=== PATIENT | female | born 1945 | race Caucasian/White ===

== ENCOUNTER 2017-09-07 08:08 | Outpatient (CLI) | payer MEDICARE, OTHER ==
--- NOTE | 2017-09-07 10:24 | DEXA Report ---
Procedure Date: 09/07/2017 Accession Number: [id number] / [id number] Procedure: DEX - Dexa Spine and/or Hip CPT Code: FULL RESULT: CLINICAL INDICATION: POST MENOPAUSAL TECHNIQUE: Dual energy x-ray absorptiometry (DXA) was performed on a Simfinit System. Regions measured are the AP Spine, femoral neck, and if needed forearm. COMPARISON: None. In accordance with the International Society for Clinical Densitometry (ISCD) guidelines, data from previous exams may be reanalyzed using current recommendations and techniques. This is done to allow a more accurate basis for comparison with the current study. FINDINGS: The data for the lumbar spine is as follows: BMD (g/cm/cm) T-SCORE Z-SCORE REGION L1 0.798 -2.8 -1.8 L2 0.954 -2.1 -1.1 L3 1.107 -0.8 0.2 L4 1.030 -1.4 -0.4 TOTAL 0.976 -1.7 -0.7 NOTE: All evaluable vertebrae are used for classification The data for the hip is as follows: BMD (g/cm/cm) T-SCORE Z-SCORE REGION Neck 0.861 -1.3 0.1 TOTAL 0.913 -0.8 0.4 NOTE: The femoral neck or total proximal femur, whichever is lowest, is used for classification. IMPRESSION: THE WHO CLASSIFICATION BASED ON THE INTERNATIONAL REFERENCE STANDARD IS OSTEOPENIA. THE FRACTURE RISK IS INCREASED. RECOMMENDATION: Patients with diagnosis of osteoporosis or osteopenia should have regular bone mineral density assessment. For those eligible for Medicare, routine testing is allowed once every 2 years. Testing frequency can be increased for patients who have rapidly progressing disease or for those who are receiving medical therapy to restore bone mass. COMMENT: World Health Organization (WHO) definitions for osteoporosis and osteopenia: NORMAL BMD: T-score at -1.0 or higher, fracture risk is low OSTEOPENIA BMD: T-score between -1.0 and -2.5, fracture risk is increased. OSTEOPOROSIS BMD: T-score at -2.5 or lower, fracture risk is high. National Osteoporosis Foundation recommends: 1. Obtain adequate dietary calcium (at least 1200 mg per day) and vitamin D (400-800 international units per day). 2. Participate, as appropriate, in regular weightbearing and muscle-strengthening exercise. 3. Avoid tobacco use and reduce alcohol and caffeine intake. 4. For more detailed information see the website at www.NOF.org.
== END 2017-09-07 08:09 | disposition home or self-care (01) ==
LOC: DI 08:08
PROVIDERS: ATTEND Nurse Practitioner Family
DX: M85.89 Other specified disorders of bone density and structure, multiple sites (principal)
CPT/HCPCS: 77080

== ENCOUNTER 2017-09-09 09:11 | Outpatient (CLI) | payer MEDICARE, OTHER ==
--- NOTE | 2017-09-12 18:09 | Mammography Report ---
Procedure Date: 09/09/2017 Accession Number: [id number] / [id number] Procedure: MGS - Screening Mammo Dig Bilat CPT Code: FULL RESULT: EXAM: Screening Mammo Dig Bilat DATE: 09/09/2017 9:34 AM CLINICAL HISTORY: History of reduction mammoplasty TECHNIQUE: Bilateral CC and MLO views were obtained. COMPARISON: 05/21/2014, 05/02/2012, 05/01/2011, and 08/26/2009 FINDINGS: There is extensive fatty replacement of the breast tissue. No suspicious clustered microcalcifications or regions of architectural distortion are identified. Stable partially calcified right subareolar nodule. New 5 mm nodule left breast lower outer quadrant posterior third. Suggest spot compression views and possible ultrasound. IMPRESSION: Benign findings right breast. Needs additional evaluation left breast. RECOMMENDATION: Additional views and possible ultrasound left breast.. BIRADS CATEGORY 0: Incomplete examination STANDARD QUALIFYING STATEMENTS: 1. This examination was reviewed with the aid of Computer-Aided Detection (CAD). 2. A negative or benign imaging report should not delay biopsy if clinically suspicious findings are present. Consider surgical consultation if warrented. More than 5% of cancers are not identified by imaging. 3. Dense breasts may obscure an underlying neoplasm.
== END 2017-09-09 09:12 | disposition home or self-care (01) ==
LOC: DI.S 09:11
PROVIDERS: ATTEND Nurse Practitioner Family
DX: Z12.31 Encounter for screening mammogram for malignant neoplasm of breast (principal); N63.23 Unspecified lump in the left breast, lower outer quadrant
CPT/HCPCS: 77067

== ENCOUNTER 2017-10-13 09:06 | Outpatient (CLI) | payer MEDICARE, OTHER ==
--- NOTE | 2017-10-13 11:00 | Ultrasound Report ---
Procedure Date: 10/13/2017 Accession Number: [id number] / [id number] Procedure: US - Breast Unilateral Limited CPT Code: FULL RESULT: EXAM: Breast Unilateral Limited DATE: 10/13/2017 10:27 AM CLINICAL HISTORY: ABNORMAL MAMMO LT BREAST TECHNIQUE: Grayscale ultrasound limited color Doppler images of the left breast were obtained. COMPARISON: Reference is made to the diagnostic mammogram performed the same day. FINDINGS: Corresponding to the subcutaneous millimeter density seen on mammogram is a left breast 4:00 7 cm from the nipple hypoechoic lesion with decreased through transmission with a round shape in parallel orientation that is well-circumscribed, has a perceptibly thick wall and does not distort the surrounding architecture. Most suggestive of a complex cyst. IMPRESSION: Likely complex cyst, probably benign. BI-RADS 3 At the patient's request, we will proceed with biopsy is still of short-term follow-up.
--- NOTE | 2017-10-13 13:51 | Mammography Report ---
Procedure Date: 10/13/2017 Accession Number: [id number] / [id number] Procedure: [facility] - Diag Special Views Dig LT CPT Code: FULL RESULT: EXAM: Diag Special Views Dig LT DATE: 10/13/2017 9:47 AM CLINICAL HISTORY: 72-year-old female recalled for findings of a new mass in the left breast. TECHNIQUE: Left mL, CC and MLO views were obtained. COMPARISON: 09/09/2017, 05/21/2014, 05/02/2012. FINDINGS: The breasts demonstrate diffuse fatty replacement bilaterally. The previously identified 3 mm mass persists. There are no associated calcifications. There is no architectural distortion. IMPRESSION: Probable benign findings RECOMMENDATION: Based on the patient's preferences, we will proceed to ultrasound guided biopsy. Mammographic surveillance every 6 months for a duration of 2 years represents the recommended default conservative management. BIRADS CATEGORY 3: Probable benign findings STANDARD QUALIFYING STATEMENTS: 1. This examination was reviewed with the aid of Computer-Aided Detection (CAD). 2. A negative or benign imaging report should not delay biopsy if clinically suspicious findings are present. Consider surgical consultation if warrented. More than 5% of cancers are not identified by imaging. 3. Dense breasts may obscure an underlying neoplasm.
== END 2017-10-13 09:07 | disposition home or self-care (01) ==
LOC: DI 09:06
PROVIDERS: ATTEND Nurse Practitioner Family
DX: N63.23 Unspecified lump in the left breast, lower outer quadrant (principal)
CPT/HCPCS: 76642

== ENCOUNTER 2017-10-14 10:28 | Outpatient (CLI) | payer MEDICARE, OTHER ==
[2017-10-14] MEDS ORDERED: BUFFERED LIDOCAINE 10 ML SYRINGE IU ONE (12:58)
--- NOTE | 2017-10-14 13:14 | Ultrasound Report ---
Procedure Date: 10/14/2017 Accession Number: [id number] / [id number] Procedure: US - Biopsy Breast Core CPT Code: FULL RESULT: EXAM: Biopsy Breast Core DATE: 10/14/2017 1:03 PM CLINICAL HISTORY: LT BREAST CORE BIOPSY COMPARISON: Ultrasound 10/13/2017. FINDINGS/TECHNIQUE: Written informed consent was obtained. The patient was brought to the procedural area and placed in the supine position. Following preliminary ultrasound images which demonstrated a safe needle pathway, the area was sterilely prepped and draped in the usual fashion. Then following local anesthesia with hypodermic lidocaine, a skin erik was made with a scalpel. Under direct ultrasound guidance a biopsy marker was placed next to the subcentimeter cystic lesion through a guiding trocar. Through the same trocar a matched 14-gauge biopsy gun was advanced and a total of 3 cores were taken under direct ultrasound visualization. The needle and guiding trocar were removed and hemostasis was maintained with manual pressure for 3 minutes. A sterile dressing was applied. The patient appeared to tolerate the procedure well. Specimens were submitted to pathology in formalin, 3 cores obtained in 3 passes. The patient was transferred to the mammography department for breast marker localization and confirmation. IMPRESSION: Left breast ultrasound-guided core biopsy.
--- NOTE | 2017-10-14 14:44 | Mammography Report ---
Procedure Date: 10/14/2017 Accession Number: [id number] / [id number] Procedure: [facility] - Diagnostic Dig LT CPT Code: FULL RESULT: EXAM: Diagnostic Dig LT DATE: 10/14/2017 12:36 PM CLINICAL HISTORY: Marker placement follow-up status post ultrasound-guided biopsy performed the same day. TECHNIQUE: Left breast CC and ML views. COMPARISON: 09/09/2017, 10/13/2017, 10/14/2017 breast ultrasound. FINDINGS: The breasts demonstrate diffuse fatty replacement bilaterally. The biopsy marker is identified as well as postbiopsy changes. Marker is in location of the previously targeted mass. IMPRESSION: Probable benign findings RECOMMENDATION: Recommend diagnostic left mammogram in 6 months. BIRADS CATEGORY 3: Probable benign findings STANDARD QUALIFYING STATEMENTS: 1. This examination was reviewed with the aid of Computer-Aided Detection (CAD). 2. A negative or benign imaging report should not delay biopsy if clinically suspicious findings are present. Consider surgical consultation if warrented. More than 5% of cancers are not identified by imaging. 3. Dense breasts may obscure an underlying neoplasm.
== END 2017-10-14 10:29 | disposition home or self-care (01) ==
LOC: DI 10:28
PROVIDERS: ATTEND Nurse Practitioner Family
DX: N63.23 Unspecified lump in the left breast, lower outer quadrant (principal)
CPT/HCPCS: 19083

== ENCOUNTER 2017-12-21 09:02 | Outpatient (CLI) | payer MEDICARE, OTHER ==
[2017-12-21 17:27] LABS: HGB - HEMOGLOBIN 15.3 g/dL (12.0-16.0); MEAN CORPUSCULAR HEMOGLOBIN 31.4 pg (27.0-31.0); MEAN CORPUSCULAR HGB CONC 33.3 g/dL (32.0-36.0); MEAN CORPUSCULAR VOLUME 94.4 fL (81.0-99.0); MEAN PLATELET VOLUME 8.1 fL (7.9-10.8); RED BLOOD COUNT 4.88 10^6/uL (4.20-5.40); RED CELL DISTRIBUTION WIDTH 13.6 % (12.0-15.0); WHITE BLOOD COUNT 5.4 x10^3/uL (4.8-10.8)
[2017-12-21 17:46] LABS: BUN - BLOOD UREA NITROGEN 16 mg/dL (6-20); CALCIUM 9.4 mg/dL (8.5-10.3); CARBON DIOXIDE - CO2 28 mmol/L (21-32); CHLORIDE 106 mmol/L (101-111); CHOL/HDL RATIO 3.4 (<4.4); CHOLESTEROL 189 mg/dL; CREATININE 0.9 mg/dL (0.4-1.0); GFR - MDRD 61 (>89); GLUCOSE 97 mg/dL (70-100); HDL CHOLESTEROL 56 mg/dL; LDL CHOLESTEROL,CALCULATED 120 mg/dL; LDL/HDL RATIO 2.1 (<4.4); SODIUM 140 mmol/L (135-145); VLDL CHOLESTEROL 13 mg/dL
== END 2017-12-21 09:03 | disposition home or self-care (01) ==
LOC: LAB.F 09:02
PROVIDERS: ATTEND Internal Medicine
DX: I10 Essential (primary) hypertension (principal); E03.9 Hypothyroidism, unspecified
CPT/HCPCS: 36415; 80048; 80061; 83721; 84443; 85027

== ENCOUNTER 2018-01-23 09:42 | Outpatient (CLI) | payer MEDICARE, OTHER ==
--- NOTE | 2018-01-23 10:46 | XRAY Report ---
Reason: PAIN OVER CUBOID 5TH MT L FT Procedure Date: 01/23/2018 Accession Number: [id number] / [id number] Procedure: XR - Foot 3 View LT CPT Code: FULL RESULT: EXAM: LEFT FOOT RADIOGRAPHY EXAM DATE: 01/23/2018 09:51 AM. CLINICAL HISTORY: Pain over cuboid fifth metatarsal left foot. COMPARISON: None. TECHNIQUE: 3 views. FINDINGS: Bones: Inferior calcaneal enthesopathy. Along the medial base of the fifth metatarsal is a well-circumscribed 6 mm cystic lesion with sclerotic border. This may represent a posttraumatic degenerative change versus benign-appearing bone lesion. No fractures or bone lesions. Joints: Normal. No subluxations. Soft Tissues: Normal. No soft tissue swelling. IMPRESSION: Posttraumatic finding versus benign-appearing bone lesion at the base of the fifth metatarsal. RADIA
== END 2018-01-23 09:43 | disposition home or self-care (01) ==
LOC: DI 09:42
PROVIDERS: ATTEND Podiatrist
DX: M79.672 Pain in left foot (principal); M85.672 Other cyst of bone, left ankle and foot

== ENCOUNTER 2018-03-30 15:04 | Outpatient (CLI) | payer MEDICARE, OTHER ==
--- NOTE | 2018-03-30 16:09 | XRAY Report ---
Reason: LOW BACK PAIN Procedure Date: 03/30/2018 Accession Number: [id number] / [id number] Procedure: XR - Lumbar Spine 2 View CPT Code: FULL RESULT: EXAM: LUMBOSACRAL SPINE RADIOGRAPHY EXAM DATE: 03/30/2018 03:45 PM. CLINICAL HISTORY: Low back pain. COMPARISONS: None. TECHNIQUE: 2 views. FINDINGS: Alignment: Levoconvex lumbar scoliosis centered about L3. Approximately about 1.2 cm of anterolisthesis of L5 on S1. Bones: Five [id number]-[id number] lumbar vertebral bodies are present. No fractures or bone lesions. Disks: Mild multilevel disk desiccation with endplate changes. Facets: Multilevel facet arthropathy which is most pronounced L5 where there is a pars defect. Sacroiliac Joints: Unremarkable. Soft Tissues: Normal. The visualized bowel gas pattern is normal. IMPRESSION: L5 pars defect with anterolisthesis of L5 on S1 as described. RADIA
== END 2018-03-30 15:05 | disposition home or self-care (01) ==
LOC: DI 15:04
PROVIDERS: ATTEND Internal Medicine
DX: M43.06 Spondylolysis, lumbar region (principal); M47.9 Spondylosis, unspecified; M51.36 Other intervertebral disc degeneration, lumbar region
CPT/HCPCS: 72100

== ENCOUNTER 2018-12-13 08:40 | Outpatient (CLI) | payer MEDICARE, OTHER ==
[2018-12-13 17:16] LABS: HGB - HEMOGLOBIN 15.1 g/dL (12.0-16.0); MEAN CORPUSCULAR HEMOGLOBIN 31.7 pg (27.0-31.0); MEAN CORPUSCULAR HGB CONC 32.6 g/dL (32.0-36.0); MEAN CORPUSCULAR VOLUME 97.3 fL (81.0-99.0); MEAN PLATELET VOLUME 9.9 fL (7.9-10.8); RED BLOOD COUNT 4.76 10^6/uL (4.20-5.40); RED CELL DISTRIBUTION WIDTH 13.1 % (12.0-15.0); WHITE BLOOD COUNT 6.8 x10^3/uL (4.8-10.8)
[2018-12-13 17:46] LABS: ALBUMIN/GLOBULIN RATIO 1.3 (1.0-2.2); BILIRUBIN,TOTAL 0.9 mg/dL (0.2-1.0); CALCIUM 9.3 mg/dL (8.5-10.3)
== END 2018-12-13 08:41 | disposition home or self-care (01) ==
LOC: LAB.S 08:40
PROVIDERS: ATTEND Internal Medicine
DX: E03.9 Hypothyroidism, unspecified (principal)
CPT/HCPCS: 36415; 80053; 84443; 85027

== ENCOUNTER 2019-05-01 08:48 | Outpatient (CLI) | payer MEDICARE, OTHER | END 2019-05-01 08:49 | disposition home or self-care (01) | LOC: LAB.S 08:48 | PROVIDERS: ATTEND Internal Medicine | DX: E03.9 Hypothyroidism, unspecified (principal) | CPT/HCPCS: 36415; 84443 ==

== ENCOUNTER 2019-11-13 07:01 | Outpatient (CLI) | payer MEDICARE, OTHER ==
--- NOTE | 2019-11-13 15:31 | Ultrasound Report ---
PROCEDURE: Pelvic w/Transvaginal INDICATIONS: POSTMENOPAUSAL BLEEDING TECHNIQUE: Real-time scanning was performed of the pelvic organs, with image documentation. Additional endovagi nal scanning was necessary due to incomplete visualization of the adnexal and endometrial structures by transabdominal scanning. COMPARISON: None. FINDINGS: Transabdominal scanning: Limited scanning through the kidneys shows no hydronephrosis. No pathologi c free abdominal or pelvic fluid. Endovaginal scanning: Uterus: Uterus is normal in size at 6.0 x 2.9 x 3.6 cm. The endometrium measures 13 mm in combined thickness. There is a right anterior subserosal focus of heterogeneous echogenicity measuring 16 x 12 x 12 mm. There is a calcification are present. Ovaries: Ovaries are not visualized. Adnexal regions are unremarkable. IMPRESSION: 1. Prominent endometrium in postmenopausal patient with bleeding. Further EXECUTIVE ACCOUNT MANAGER workup is recommended. Although no focal mass is identified, underlying neoplasm cannot be definitively excluded. 2. Small focus of heterogeneous echogenicity within the uterus suspicious for fibroid. Reviewed by: Tsering Forte MD on 11/13/2019 3:30 PM PDT Approved by: Tsering Forte MD on 11/13/2019 3:30 PM PDT Station ID: [id number]
== END 2019-11-13 07:02 | disposition home or self-care (01) ==
LOC: DI 07:01
PROVIDERS: ATTEND Obstetrics & Gynecology
DX: R93.89 Abnormal findings on diagnostic imaging of other specified body structures (principal)
CPT/HCPCS: 76830; 76856

== ENCOUNTER 2019-12-31 12:59 | Outpatient (CLI) | payer MEDICARE, OTHER ==
[2019-12-31 13:20] LABS: BASOPHILS # (AUTO) 0.1 10^3/uL (0.0-0.1); BASOPHILS % (AUTO) 0.7 %; EOSINOPHILS # (AUTO) 0.2 10^3/uL (0.0-0.7); EOSINOPHILS % (AUTO) 2.3 %; HGB - HEMOGLOBIN 14.6 g/dL (12.0-16.0); LYMPHOCYTES % (AUTO) 27.3 %; MEAN CORPUSCULAR HEMOGLOBIN 31.6 pg (27.0-31.0); MEAN CORPUSCULAR HGB CONC 32.8 g/dL (32.0-36.0); MEAN CORPUSCULAR VOLUME 96.3 fL (81.0-99.0); MONOCYTES # (AUTO) 0.8 10^3/uL (0.0-1.0); NEUTROPHILS # (AUTO) 4.3 10^3/uL (1.5-6.6); NEUTROPHILS % (AUTO) 58.3 %; PLT - PLATELET COUNT 187 10^3/uL (130-450); RED BLOOD COUNT 4.62 10^6/uL (4.20-5.40); RED CELL DISTRIBUTION WIDTH 12.8 % (12.0-15.0); WHITE BLOOD COUNT 7.4 x10^3/uL (4.8-10.8)
[2019-12-31 13:30] LABS: ALBUMIN 3.9 g/dL (3.2-5.5); ALBUMIN/GLOBULIN RATIO 1.3 (1.0-2.2); BILIRUBIN,TOTAL 0.7 mg/dL (0.2-1.0); CALCIUM 9.2 mg/dL (8.5-10.3); TOTAL PROTEIN 6.8 g/dL (6.7-8.2)
== END 2019-12-31 13:00 | disposition home or self-care (01) ==
LOC: LAB 12:59
PROVIDERS: ATTEND Obstetrics & Gynecology
DX: Z01.810 Encounter for preprocedural cardiovascular examination (principal); N95.0 Postmenopausal bleeding; R93.89 Abnormal findings on diagnostic imaging of other specified body structures
CPT/HCPCS: 36415; 80053; 85025; 93005; U0004

== ENCOUNTER 2020-01-03 06:15 | Day surgery (SDC) | payer MEDICARE, OTHER ==
[2020-01-03] MEDS ORDERED: CEFAZOLIN SODIUM IN 0.9 % NACL 2 GM/100 ML BAG IV ONE (06:28)
[2020-01-03] MEDS ORDERED: ACETAMINOPHEN 1,000 MG/100 ML 100 ML IV ONE ×2 (06:29→07:42)
[2020-01-03] MEDS ORDERED: CELECOXIB 100 MG CAPSULE PO ONE (06:29)
[2020-01-03] MEDS ORDERED: GABAPENTIN 400 MG CAPSULE ONE (06:30)
[2020-01-03] MEDS ORDERED: LACTATED RINGERS 1,000 ML IV ONE ×2 (06:34→08:39)
[2020-01-03] MEDS ORDERED: SILVER NITRATE APPLICATOR TOP ONE (07:20)
[2020-01-03] MEDS ORDERED: BUPIVACAINE 0.25%-EPI 1:200000 PF 30 ML VIAL ONE (07:20)
--- NOTE | 2020-01-03 07:26 | ANESTHESIA ---
Pre-Anesthesia VS, & Labs - Diagnosis post-menopausal bleeding, thickened endometrium - Procedure myosure hysteroscopy, D&C Vital Signs: Temp Pulse Resp BP Pulse Ox 37.1 C 67 18 150/77 H 96 01/03/20 06:36 01/03/20 06:36 01/03/20 06:36 01/03/20 06:36 01/03/20 06:36 Height: 5 ft 3 in Weight (kg): 101 kg Body Mass Index: 39.4 BMI Classification: Obese - NPO >8 hours - Is Patient ?: No - Lab Results Current Lab Results: Laboratory Tests 01/03/20 06:42: POC Whole Bld Glucose 100 Lab results reviewed: Yes Home Medications and Allergies Home Medications: Ambulatory Orders Cholecalciferol (Vitamin D3) [Vitamin D3] 5,000 unit PO DAILY 12/25/19 Levothyroxine Sodium 50 mcg PO DAILY 12/25/19 Metoprolol Succinate [Toprol Xl] 50 mg PO DAILY 12/25/19 Pentosan Polysulfate Sodium [Elmiron] 100 mg PO TID 12/25/19 Tolterodine Tartrate [Detrol LA] 4 mg PO DAILY 12/25/19 Venlafaxine HCl [Venlafaxine HCl ER] 75 mg PO DAILY 12/25/19 Cholecalciferol (Vitamin D3) [Vitamin D3] 5,000 unit PO DAILY 12/25/19 Levothyroxine Sodium 50 mcg PO DAILY 12/25/19 Metoprolol Succinate [Toprol Xl] 50 mg PO DAILY 12/25/19 Pentosan Polysulfate Sodium [Elmiron] 100 mg PO TID 12/25/19 Tolterodine Tartrate [Detrol LA] 4 mg PO DAILY 12/25/19 Venlafaxine HCl [Venlafaxine HCl ER] 75 mg PO DAILY 12/25/19 Allergies/Adverse Reactions: Allergies Allergy/AdvReac Type Severity Reaction Status Date / Time Sulfa (Sulfonamide Allergy Rash Verified 12/25/19 10:47 Antibiotics) Anes History & Medical History - Anesthetic History Anesthesia Complications: reports: No previous complications Family history of Anesthesia Complications: Denies Family history of Malignant Hyperthermia: Denies - Medical History Cardiovascular: reports: Hypertension Pulmonary: reports: None Gastrointestinal: reports: GERD, Colon polyps Urinary: reports: Frequency, Other Musculoskeletal: reports: None Endocrine/Autoimmune: reports: HyPOthyroidism Skin: reports: None - Surgical History General: Appendectomy, Colonoscopy Eyes Ears Nose Throat (EENT): Cataracts, Tonsil/Adenoidectomy Gynecologic: Breast reduction Exam General: Alert, Oriented x3, Cooperative, No acute distress Dental: WNL Mouth Openin Fingerbreadth Neck Mobility: Normal Mallampati classification: II Respiratory: Lungs clear Cardiovascular: Regular rate, Normal S1, Normal S2, No murmurs Plan Anesthesia Type: MAC Consent for Procedure(s) Verified and Reviewed: Yes Code Status: Attempt Resuscitation ASA classification: 3-Severe systemic disease Is this case an emergency?: No
[2020-01-03] MEDS ORDERED: ONDANSETRON 4 MG/2 ML VIAL IVP PRN ×2 (07:27→08:44)
[2020-01-03] MEDS ORDERED: NALOXONE 0.4 MG/ML VIAL IVP PRN (07:27)
[2020-01-03] MEDS ORDERED: MORPHINE 2 MG/ML CARPUJECT IVP PRN (07:27)
[2020-01-03] MEDS ORDERED: ePHEDrine 50 MG/ML VIAL IVP PRN (07:27)
[2020-01-03] MEDS ORDERED: HYDROmorphone 0.5 MG/0.5 ML SYRINGE IVP PRN (07:27)
[2020-01-03] MEDS ORDERED: METOCLOPRAMIDE 10 MG/2 ML VIAL IVP PRN (07:27)
[2020-01-03] MEDS ORDERED: ATROPINE ABBOJECT 1 MG/10 ML SYRINGE IVP PRN (07:27)
[2020-01-03] MEDS ORDERED: fentaNYL 100 MCG/2 ML VIAL IVP PRN (07:27)
[2020-01-03] MEDS ORDERED: ONDANSETRON 4 MG/2 ML VIAL IVP ONE (07:42)
[2020-01-03] MEDS ORDERED: MIDAZOLAM 2 MG/2 ML VIAL IVP ONE (07:42)
[2020-01-03] MEDS ORDERED: fentaNYL 100 MCG/2 ML VIAL IVP ONE (07:42)
[2020-01-03] MEDS ORDERED: PROPOFOL 200 MG/20 ML VIAL IVP ONE (07:42)
[2020-01-03] MEDS ORDERED: LACTATED RINGERS 1,000 ML IV SCH (08:00)
[2020-01-03] MEDS ORDERED: BUPIVACAINE 0.25%-EPI 1:200000 PF 30 ML VIAL SUBQ ONE (08:10)
--- NOTE | 2020-01-03 08:43 | ANESTHESIA POST OP EVALUATION ---
Anesthesia Post Eval - Post Anesthesia Eval Vitals: Last Vital Signs Temp 37.1 C 01/03/20 06:36 Pulse 67 01/03/20 06:36 Resp 18 01/03/20 06:36 BP 150/77 H 01/03/20 06:36 Pulse Ox 96 01/03/20 06:36 CV Function Including HR & BP: positive: Stable Pain Control: positive: Satisfactory Nausea & Vomiting: positive: Negative Mental Status: positive: Baseline Respiratory Status: Airway Patent Hydration Status: Satisfactory Anesthesia Complications: positive: None
[2020-01-03] MEDS ORDERED: oxyCODONE 5 MG TABLET PO PRN (08:44)
[2020-01-03] MEDS ORDERED: LORazepam 2 MG/ML VIAL IVP PRN (08:44)
--- NOTE | 2020-01-03 08:50 | OPERATIVE REPORT ---
Operative Report - General Procedure Date: 01/03/20 Planned Procedure: Hysterscopy Pre-Op Diagnosis: Postmenopausel bleeding thickened endometrium Procedure Performed: Hysterscopy with myosure Post Op Diagnosis: endometrial polyps - Procedure Note Primary Surgeon: Walt Zimmer MD Anesthesia Provider: Emanuel Small CRNA Anesthesia Technique: Local, Moderate sedation Pathology: endometrila polyps IV Fluids (mL): 800 Estimated Blood Loss (mL): 5 Urine Output (mL): 100 Indications: Post menopausel bleeding Findings: two distinct endometrial polyps Complications: none
[2020-01-03 10:02] VITALS: BP 110/79
--- NOTE | 2020-01-03 15:15 | OPERATIVE REPORT ---
DATE OF SERVICE: 01/03/2020 Physician: Walt Zimmer MD PREOPERATIVE DIAGNOSIS: Postmenopausal bleeding. POSTOPERATIVE DIAGNOSES: Postmenopausal bleeding with endometrial polyps. PROCEDURE PERFORMED: Hysteroscopy with resection of endometrial polyps with MyoSure. SURGEON: Walt Zimmer MD ANESTHESIA PROVIDER: Iva Guerrero CRNA. ANESTHETIC: Local with MAC. IV FLUIDS: 800 mL. ESTIMATED BLOOD LOSS: 50 mL. URINE OUTPUT: 100 mL. FLUID DEFICIT: 200 mL. FINDINGS: Upon entering the endometrial cavity, there was evidence of what appeared to be a cervical polyp. This was not able to be removed. The uterus sounded to 8 cm. There were 2 distinct endomet rial polyps noted, which attached both on the right posterior side as well as the left side. PROCEDURE: Following adequate IV sedation, patient was placed in the dorsal lithotomy position. At this point, she was prepped and draped in the usual fashion. A timeout was performed at which issues were addressed. A speculum was placed in the vagina. The cervix was visualized. There was evidenc e of a polyp, which was protruding from the cervix. This was grasped with forceps and was unable to be removed. At this point, the cervix was dilated up to 8 mm and a video MyoSure scope was placed. The endometrial cavity was inspected. There were polyps which obscured the view of the endometrial c avity. At this point, the MyoSure heavy was placed and the endometrial polyps were resected all the way down to the myometrium. The endometrial cavity appeared to be free of any polyps at this point. At this point, the endometrial cavity was inspected in its entirety. There was no further polyps se en. The hysteroscope was removed. The cervix was released from the single-tooth tenaculum. The pat ient tolerated the procedure well and was taken to recovery in stable condition. Sponge and needle c ounts were correct. TD: 01/03/2020 08:58
== END 2020-01-03 06:16 | disposition home or self-care (01) ==
LOC: SDS 06:15
PROVIDERS: ATTEND Obstetrics & Gynecology
PROC: 0UB98ZZ Excision of Uterus, Via Natural or Artificial Opening Endoscopic (ICD-10-PCS; principal; 2020-01-03 07:30)
DX: R93.89 Abnormal findings on diagnostic imaging of other specified body structures (principal); N95.0 Postmenopausal bleeding; N84.0 Polyp of corpus uteri; N84.1 Polyp of cervix uteri; E66.9 Obesity, unspecified; Z68.39 Body mass index [BMI] 39.0-39.9, adult; I10 Essential (primary) hypertension; E03.9 Hypothyroidism, unspecified
CPT/HCPCS: 58558; A9270; J0131; J0690; J7120

== ENCOUNTER 2020-04-08 11:04 | Outpatient (CLI) | payer MEDICARE, OTHER ==
[2020-04-08 15:38] LABS: BASOPHILS # (AUTO) 0.1 10^3/uL (0.0-0.1); BASOPHILS % (AUTO) 0.7 %; EOSINOPHILS # (AUTO) 0.2 10^3/uL (0.0-0.7); EOSINOPHILS % (AUTO) 2.8 %; HGB - HEMOGLOBIN 14.7 g/dL (12.0-16.0); LYMPHOCYTES # (AUTO) 1.6 10^3/uL (1.5-3.5); MEAN CORPUSCULAR HEMOGLOBIN 30.2 pg (27.0-31.0); MEAN CORPUSCULAR HGB CONC 31.3 g/dL (32.0-36.0); MEAN CORPUSCULAR VOLUME 96.7 fL (81.0-99.0); MEAN PLATELET VOLUME 9.4 fL (7.9-10.8); MONOCYTES # (AUTO) 0.8 10^3/uL (0.0-1.0); MONOCYTES % (AUTO) 11.2 %; NEUTROPHILS # (AUTO) 4.1 10^3/uL (1.5-6.6); PLT - PLATELET COUNT 213 10^3/uL (130-450); RED BLOOD COUNT 4.86 10^6/uL (4.20-5.40); RED CELL DISTRIBUTION WIDTH 13.1 % (12.0-15.0); WHITE BLOOD COUNT 6.7 x10^3/uL (4.8-10.8)
[2020-04-08 15:54] LABS: ALBUMIN 4.2 g/dL (3.2-5.5); ALBUMIN/GLOBULIN RATIO 1.5 (1.0-2.2); ALKALINE PHOSPHATASE 47 IU/L (42-121); ALT ALANINE AMINOTRANSFERASE 23 IU/L (10-60); AST ASPARTATE AMINOTRANSFERASE 21 IU/L (10-42); BILIRUBIN,TOTAL 0.6 mg/dL (0.2-1.0); BUN - BLOOD UREA NITROGEN 13 mg/dL (6-20); CALCIUM 9.3 mg/dL (8.5-10.3); CARBON DIOXIDE - CO2 28 mmol/L (21-32); CHLORIDE 104 mmol/L (101-111); CHOL/HDL RATIO 3.5 (<4.4); CHOLESTEROL 187 mg/dL; CREATININE 0.9 mg/dL (0.4-1.0); GLUCOSE 111 mg/dL (70-100); HDL CHOLESTEROL 54 mg/dL; LDL CHOLESTEROL,CALCULATED 106 mg/dL; SODIUM 138 mmol/L (135-145); VLDL CHOLESTEROL 27 mg/dL
== END 2020-04-08 11:05 | disposition home or self-care (01) ==
LOC: LAB.S 11:04
PROVIDERS: ATTEND Internal Medicine
DX: I10 Essential (primary) hypertension (principal); E03.9 Hypothyroidism, unspecified
CPT/HCPCS: 36415; 80053; 80061; 83721; 84443; 85025

== ENCOUNTER 2020-09-11 13:20 | Emergency (ER) | payer MEDICARE, OTHER ==
--- NOTE | 2020-09-11 13:49 | ED Physician Documentation ---
PD HPI LOWER EXT INJURY - Stated complaint Stated Complaint: LT KNEE WEAKNESS - Chief complaint Chief Complaint: Ext Problem - History obtained from History obtained from: Patient - Additional information Additional information: She did a lot of walking yesterday. Today she woke up and felt like she could not use her left leg. It was weak and painful to try to walk on it and to bend. She had some tingling in that leg. She has chronic incontinence but did notice today after using the bathroom for urination, she thought completely, she had an episode of incontinence. She has ongoing back pain. Review of Systems Ten Systems: 10 systems reviewed and negative Constitutional: reports: Reviewed and negative Eyes: reports: Reviewed and negative Ears: reports: Reviewed and negative Nose: reports: Reviewed and negative Throat: reports: Reviewed and negative Cardiac: reports: Reviewed and negative PD PAST MEDICAL HISTORY - Past Medical History Cardiovascular: Hypertension Respiratory: None Endocrine/Autoimmune: HyPOthyroidism GI: GERD, Colon polyps : Incontinence, Nocturia, Frequency, Other HEENT: Chronic vision loss, Chronic hearing loss Psych: Anxiety Musculoskeletal: None Derm: None - Past Surgical History General: Appendectomy, Colonoscopy /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: Breast reduction, Other HEENT: Cataracts, Tonsil/Adenoidectomy - Present Medications Home Medications: Ambulatory Orders Medication Instructions Recorded Confirmed Levothyroxine Sodium 50 mcg PO DAILY 12/25/19 07/21/20 Metoprolol Succinate [Toprol Xl] 50 mg PO DAILY 12/25/19 07/21/20 Venlafaxine HCl [Venlafaxine HCl 75 mg PO DAILY PM 12/25/19 07/21/20 ER] Tolterodine Tartrate [Detrol LA] 4 mg PO DAILY PM 04/18/20 07/21/20 Ergocalciferol (Vitamin D2) 50 mcg PO DAILY 07/21/20 07/21/20 [Vitamin D2] predniSONE [Deltasone] 20 mg PO [id number] #21 tab 09/11/20 - Allergies Allergies/Adverse Reactions: Allergies Allergy/AdvReac Type Severity Reaction Status Date / Time Sulfa (Sulfonamide Allergy Rash Verified 09/11/20 13:46 Antibiotics) - Social History Smoking Status: Unknown if ever smoked PD ED PE NORMAL - Vitals Vital signs reviewed: Yes - General General: Alert and oriented X 3, No acute distress - HEENT HEENT: PERRL, EOMI - Neck Neck: Supple, no meningeal sign, No bony TTP - Cardiac Cardiac: RRR, No murmur - Respiratory Respiratory: No respiratory distress, Clear bilaterally - Abdomen Abdomen: Non tender - Back Back: Other (Some tenderness to the lower lumbar spine and left sciatic notch as well as the right sciatic notch.) - Extremities Extremities: No deformity, No tenderness to palpate, Normal ROM s pain - Neuro Neuro: Alert and oriented X 3, Normal speech, Other (Left knee is mildly tender along the medial joint line. There is no obvious effusion. Patellar reflexes are equal. Sensation throughout the lower extremities is equal.) Results - Vitals Vitals: Vital Signs - 24 hr 09/11/20 09/11/20 13:44 18:06 Temperature 36.7 C Heart Rate 64 58 L Respiratory 16 16 Rate Blood Pressure 154/78 H 168/81 H O2 Saturation 97 97 Oxygen O2 Source Room air PD MEDICAL DECISION MAKING - ED course ED course: 75-year-old woman presents with left leg weakness out of proportion to some knee pain she is having. I watched her walk. She does not limp, she seems to be dragging the left leg. There is no associated numbness and no associated weakness in the left arm or face. Stroke is considered, but the isolated nature in association with back pain would be more suggestive of radiculopathy or spinal stenosis which would be asymmetric. She had no incontinence today on top of her usual stress incontinence which is also concerning. MRI Lspine: IMPRESSION: Multiple levels of lumbar spine degenerative change are seen. At L5-S1, there is grade 1 anterolisthesis is again seen, with associated bilateral pars defects. At this level, there is moderate to severe bilateral neuroforaminal narrowing, with associated exiting nerve root compression. L2-L3, there is moderate bilateral neuroforaminal narrowing and moderate to severe central canal narrowing present. Remote appearing L2 anterior wedge deformity, with approximately 50% loss of height anteriorly 75-year-old woman presents with low back pain and left leg weakness. Given her complaints there was a concern for cauda equina. Call was placed to [facility] after completion of MRI, we are waiting for them to call back for consultation and the patient was eager to leave. She had actually had improved without specific therapy during her ED visit and now is walking unassisted. I discussed the risks and benefits of leaving with the patient and family, given that she has improved, has a negligible post void residual by bladder scan, I think it is okay to be discharged. I told him I would call them if the spine surgeon call me back the best number, is [phone]. After discharge I was able [facility] He viewed the images and we discussed the presentation. He did not think urgent transfer or urgent follow-up was necessary. He agreed with the steroid taper. I gave him the patient's phone number and he plans to do a teledoc visit next week to see how she is doing and assess the need for further evaluation. Patient was updated by phone and appreciative after I spoke with the neurosurgeon. Departure - Departure Disposition: 01 Home, Self Care Clinical Impression: Sciatica of left side Condition: Good Record reviewed to determine appropriate education?: Yes Instructions: ED Sciatica Prescriptions: predniSONE [Deltasone] 20 mg PO [id number] #21 tab Comments: The steroid taper should help with the inflammation. You still need to follow- up with a spine surgeon, take the copy of the MRI on CD with you to that appointment. spine clinic: to schedule an appointment with a specialist, call [phone] or . IMPRESSION: Multiple levels of lumbar spine degenerative change are seen. At L5-S1, there is grade 1 anterolisthesis is again seen, with associated bilateral pars defects. At this level, there is moderate to severe bilateral neuroforaminal narrowing, with associated exiting nerve root compression. L2-L3, there is moderate bilateral neuroforaminal narrowing and moderate to severe central canal narrowing present. Remote appearing L2 anterior wedge deformity, with approximately 50% loss of height anteriorly. Discharge Date/Time: 09/11/20 18:06
[2020-09-11] MEDS ORDERED: IBUPROFEN 600 MG TABLET PO STA (14:04)
--- NOTE | 2020-09-11 14:35 | XRAY Report ---
PROCEDURE: Knee 4 View LT INDICATIONS: knee pain TECHNIQUE: 3 views of the left knee(s) were acquired. COMPARISON: None. FINDINGS: Bones: No fractures or dislocations. No suspicious bony lesions. Soft tissues: No joint effusion. No suspicious soft tissue calcifications. IMPRESSION: No visualized acute fracture or dislocation. However, occult injury cannot be excluded. Recommend short interval imaging follow-up in 7-10 days as clinically indicated for additional evalua tion. Reviewed by: Tsering Forte MD on 09/11/2020 2:33 PM PDT Approved by: Tsering Forte MD on 09/11/2020 2:33 PM PDT Station ID: [id number]
--- NOTE | 2020-09-11 16:19 | MRI Report ---
PROCEDURE: Lumbar Spine W/O INDICATIONS: back pain and incontinence TECHNIQUE: Noncontrast sagittal T1 spin echo and T2 fast echo, sagittal STIR, and T2 fast spin echo through the lumbar spine. In cases with scoliosis, additional coronal T2 fast spin echo may be performed. COMPARISON: Correlation is made with prior lumbar plain films, 03/30/2018 FINDINGS: Image quality: Diagnostic, with note made of motion artifact. Alignment and Curvature: There is grade 1 anterolisthesis seen at the L5-S1 level. Bilateral pars de fects are faintly seen. There is minimal retrolisthesis seen at L2-L3 and L3-L4. Bone Marrow: Marrow is of normal overall signal. There is a compression of arteries seen involving L 2, with 50% loss of height anteriorly. No acute features are seen. Spinal Cord: Conus medullaris terminates at the L1 level. Visualized cord demonstrates normal signa l and size. Paraspinous Soft Tissues: No paravertebral masses. 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 T12-L1: Normal in appearance. L1-L2: The disc height is well-preserved. There is loss of disc signal seen. Moderate disc bulge is seen at this level. Mild to moderate facet hypertrophy is seen. There is mild to moderate right- sided and moderate left-sided neuroforaminal narrowing seen. Moderate central canal narrowing is see n. L2-L3: The disc height is well-preserved. There is loss of disc signal seen. At least moderate dis c bulge is seen. There is a central disc protrusion. Moderate to prominent facet hypertrophy is seen. Associated hypertrophy of the ligamentum flavum can be seen. Moderate bilateral neuroforaminal narr owing is seen, left worse than right. Moderate to severe central canal narrowing is seen, as on serie s 701 image 23. L3-L4: Moderate loss of disc height and signal are seen. Moderate disc bulge is seen at this lev el. Moderate facet hypertrophy is seen. Moderate bilateral neural foraminal narrowing is seen, ri ght worse than left. Moderate central canal narrowing is seen. L4-L5: The disc height is well-preserved. There is loss of disc signal seen. Mild to moderate disc bulge is seen, which is eccentric to the right. Mild to moderate facet hypertrophy is seen. There is moderate right-sided and mild to moderate left-sided neuroforaminal narrowing seen. No significant ce ntral canal narrowing is seen. L5-S1: At least moderate loss of disc height and disc signal can be seen. Reactive marrow endplate changes are seen, which are hyperintense on T1-weighted and T2-weighted imaging, without significant increased STIR signal. These imaging findings are most consistent with fatty metaplasia (Modic type 2 change). Mild to moderate disc bulge is seen. Moderate facet hypertrophy is seen. There is moder ate to severe bilateral neuroforaminal narrowing seen. Compression is seen upon the exiting nerve laure ts. Mild central canal narrowing is seen. IMPRESSION: Multiple levels of lumbar spine degenerative change are seen. At L5-S1, there is grade 1 anterolisthesis is again seen, with associated bilateral pars defects. At this level, there is moderate to severe bilateral neuroforaminal narrowing, with associated exiting n erve root compression. L2-L3, there is moderate bilateral neuroforaminal narrowing and moderate to severe central canal narr owing present. Remote appearing L2 anterior wedge deformity, with approximately 50% loss of height anteriorly. Incidental note is made of: Apparent 2 cm liver cyst Reviewed by: Jersey Jung MD on 09/11/2020 3:18 PM KATHY Approved by: Jersey Jung MD on 09/11/2020 3:18 PM KATHY Station ID: [id number]
[2020-09-11] MEDS ORDERED: predniSONE 20 MG TABLET PO STA (17:53)
[2020-09-11 18:07] VITALS: BP 168/81
== END 2020-09-11 18:06 | disposition home or self-care (01) ==
LOC: ED 13:20
DX: M54.42 Lumbago with sciatica, left side (principal); M47.26 Other spondylosis with radiculopathy, lumbar region; M48.061 Spinal stenosis, lumbar region without neurogenic claudication; I10 Essential (primary) hypertension
CPT/HCPCS: 72148; 73564; 99283; A9270; J7512

== ENCOUNTER 2020-10-02 16:08 | Outpatient (CLI) | payer MEDICARE, OTHER ==
[2020-10-02 20:08] LABS: ALBUMIN/GLOBULIN RATIO 1.3 (1.0-2.2); BILIRUBIN,TOTAL 0.9 mg/dL (0.2-1.0); CALCIUM 9.1 mg/dL (8.5-10.3); CREATININE 0.9 mg/dL (0.4-1.0); POTASSIUM 4.2 mmol/L (3.5-5.0)
[2020-10-02 20:24] LABS: THYROID STIMULATING HORMONE 4.51 uIU/mL (0.34-5.60)
== END 2020-10-02 16:09 | disposition home or self-care (01) ==
LOC: LAB.S 16:08
PROVIDERS: ATTEND Internal Medicine
DX: I10 Essential (primary) hypertension (principal); E03.9 Hypothyroidism, unspecified
CPT/HCPCS: 36415; 80053; 84443

== ENCOUNTER 2020-12-30 16:31 | Outpatient (CLI) | payer MEDICARE, OTHER ==
--- NOTE | 2020-12-30 17:09 | XRAY Report ---
PROCEDURE: Foot 3 View LT INDICATIONS: INJURY LT FOOT TECHNIQUE: 3 views of the foot were acquired. COMPARISON: X-ray foot 01/23/2018 FINDINGS: Bones: No fractures or dislocations. Previously noted cystic appearing lesion at the medial base of the fifth metatarsal is relatively unchanged. Scattered areas of IP degenerative narrowing are presen t. Calcaneal osteophyte is present. Soft tissues: No tibiotalar joint effusion. Achilles tendon appears normal. IMPRESSION: No visualized acute fracture or dislocation. However, occult injury cannot be excluded. Recommend helen rt interval imaging follow-up in 7-10 days as clinically indicated for additional evaluation. Reviewed by: Tsering Forte MD on 12/30/2020 5:08 PM PDT Approved by: Tsering Forte MD on 12/30/2020 5:08 PM PDT Station ID: [id number]
== END 2020-12-30 16:32 | disposition home or self-care (01) ==
LOC: DI 16:31
PROVIDERS: ATTEND Podiatrist
DX: S99.922A Unspecified injury of left foot, initial encounter (principal)

== ENCOUNTER 2021-02-03 08:30 | Outpatient (CLI) | payer MEDICARE, OTHER ==
--- NOTE | 2021-02-04 09:55 | Mammography Report ---
BILATERAL DIGITAL SCREENING MAMMOGRAM 3D/2D: 02/03/2021 CLINICAL: Routine screening. Comparison is made to exams dated: 10/14/2017 mammogram, 10/14/2017 ultrasound biopsy, 10/13/2017 ultra sound, 09/09/2017 mammogram, 10/13/2017 mammogram, and 05/21/2014 mammogram - [facility]. There are scattered fibroglandular elements in both breasts. There are benign calcifications in the right breast. There also is a biopsy clip in the left breast. No significant masses, calcifications, or other findings are seen in either breast. There has been no significant interval change. IMPRESSION: BENIGN There is no mammographic evidence of malignancy. A 1 year screening mammogram is recommended. This exam was interpreted at Station ID: [id number]. NOTE: For mammograms, a report in lay terms will be sent to the patient. Approximately 15% of breast malignancies will not be visualized mammographically. In the management of a palpable breast mass, a negative mammogram must not discourage biopsy of a clinically suspicious lesion. Electronically Signed By: Matheus Ferraro M.D. ddp/penrad:02/03/2021 09:50:32 ACR BI-RADS Category 2: Benign Finding(s) 3342F PARENCHYMAL PATTERN: (A) - The breast(s) demonstrate(s) scattered fibroglandular densities. BI-RADS CATEGORY: (2) - 2 RECOMMENDATION: (ANNUAL) - Recommend routine annual screening mammography. [id number] 1 year screening LATERALITY: (B)
== END 2021-02-03 08:31 | disposition home or self-care (01) ==
LOC: DI 08:30
PROVIDERS: ATTEND Internal Medicine
DX: Z12.31 Encounter for screening mammogram for malignant neoplasm of breast (principal)

== ENCOUNTER 2021-03-25 09:30 | Outpatient (CLI) | payer MEDICARE, OTHER ==
[2021-03-25 14:26] LABS: BASOPHILS # (AUTO) 0.1 10^3/uL (0.0-0.1); BASOPHILS % (AUTO) 0.9 %; EOSINOPHILS # (AUTO) 0.3 10^3/uL (0.0-0.7); EOSINOPHILS % (AUTO) 3.6 %; HCT - HEMATOCRIT 47.1 % (37.0-47.0); HGB - HEMOGLOBIN 15.1 g/dL (12.0-16.0); LYMPHOCYTES # (AUTO) 1.6 10^3/uL (1.5-3.5); LYMPHOCYTES % (AUTO) 22.3 %; MEAN CORPUSCULAR HEMOGLOBIN 30.1 pg (27.0-31.0); MEAN CORPUSCULAR HGB CONC 32.1 g/dL (32.0-36.0); MEAN PLATELET VOLUME 9.6 fL (7.9-10.8); MONOCYTES # (AUTO) 0.8 10^3/uL (0.0-1.0); MONOCYTES % (AUTO) 11.6 %; NEUTROPHILS # (AUTO) 4.3 10^3/uL (1.5-6.6); NEUTROPHILS % (AUTO) 61.3 %; PLT - PLATELET COUNT 205 10^3/uL (130-450); RED BLOOD COUNT 5.01 10^6/uL (4.20-5.40); RED CELL DISTRIBUTION WIDTH 13.4 % (12.0-15.0)
[2021-03-25 14:44] LABS: ALBUMIN 4.1 g/dL (3.2-5.5); ALBUMIN/GLOBULIN RATIO 1.3 (1.0-2.2); ALKALINE PHOSPHATASE 42 IU/L (42-121); ALT ALANINE AMINOTRANSFERASE 20 IU/L (10-60); AST ASPARTATE AMINOTRANSFERASE 21 IU/L (10-42); BILIRUBIN,TOTAL 0.4 mg/dL (0.2-1.0); BUN - BLOOD UREA NITROGEN 18 mg/dL (6-20); CALCIUM 9.4 mg/dL (8.5-10.3); CARBON DIOXIDE - CO2 28 mmol/L (21-32); CHLORIDE 104 mmol/L (101-111); CHOL/HDL RATIO 3.8 (<4.4); CHOLESTEROL 196 mg/dL; CREATININE 0.9 mg/dL (0.4-1.0); GFR - MDRD 61 (>89); GLUCOSE 102 mg/dL (70-100); HDL CHOLESTEROL 52 mg/dL; LDL CHOLESTEROL,CALCULATED 125 mg/dL; LDL/HDL RATIO 2.4 (<4.4); POTASSIUM 4.3 mmol/L (3.5-5.0); SODIUM 141 mmol/L (135-145); TOTAL PROTEIN 7.3 g/dL (6.7-8.2); TRIGLYCERIDES 94 mg/dL; VLDL CHOLESTEROL 19 mg/dL
[2021-03-25 14:51] LABS: THYROID STIMULATING HORMONE 4.24 uIU/mL (0.34-5.60)
== END 2021-03-25 09:31 | disposition home or self-care (01) ==
LOC: LAB.S 09:30
PROVIDERS: ATTEND Internal Medicine
DX: I10 Essential (primary) hypertension (principal); E03.9 Hypothyroidism, unspecified
CPT/HCPCS: 36415; 80053; 80061; 83721; 84443; 85025

== ENCOUNTER 2021-09-24 09:01 | Outpatient (CLI) | payer MEDICARE, OTHER ==
--- NOTE | 2021-09-24 09:43 | DEXA Report ---
PROCEDURE: Dexa Spine and/or Hip INDICATIONS: POST MENOPAUSAL TECHNIQUE: Dual energy x-ray absorptiometry (DXA) was performed on a 404 [employer] System. Regions measur ed are the AP Spine, femoral neck, and if needed forearm. COMPARISON: None. FINDINGS: Lumbar Spine: Bone Mineral Density 1.134 g/cm/cm,T score -0.4, normal Left total Hip: Bone Mineral Density 0.938 g/cm/cm,T score -0.6, normal Left Femoral Neck: Bone Mineral Density 0.840 g/cm/cm, T score -1.4, osteopenia (T score greater or equal to -1.0: NORMAL) (T score from -1.1 to -2.4: OSTEOPENIA) (T score less than or equal to -2.5 to: OSTEOPOROSIS) Impression: Osteopenic bone mineral density. Patients with diagnosis of osteoporosis or osteopenia should have regular bone mineral density assess ment. For those eligible for Medicare, routine testing is allowed once every 2 years. Testing frequ ency can be increased for patients who have rapidly progressing disease or for those who are receivin g medical therapy to restore bone mass. Reviewed by: Ignacio Munoz on 09/24/2021 9:42 AM PDT Approved by: Ignacio Munoz on 09/24/2021 9:42 AM PDT Station ID: [id number]
== END 2021-09-24 09:02 | disposition home or self-care (01) ==
LOC: DI 09:01
PROVIDERS: ATTEND Nurse Practitioner
DX: Z78.0 Asymptomatic menopausal state (principal); M85.88 Other specified disorders of bone density and structure, other site

== ENCOUNTER 2022-05-10 06:44 | Outpatient (CLI) | payer MEDICARE, OTHER ==
[2022-05-10 07:52] LABS: BASOPHILS # (AUTO) 0.1 10^3/uL (0.0-0.1); BASOPHILS % (AUTO) 0.8 %; EOSINOPHILS # (AUTO) 0.2 10^3/uL (0.0-0.7); EOSINOPHILS % (AUTO) 2.1 %; HCT - HEMATOCRIT 46.8 % (37.0-47.0); LYMPHOCYTES # (AUTO) 1.7 10^3/uL (1.5-3.5); MEAN CORPUSCULAR HEMOGLOBIN 30.1 pg (27.0-31.0); MEAN CORPUSCULAR HGB CONC 32.1 g/dL (32.0-36.0); MEAN PLATELET VOLUME 9.2 fL (7.9-10.8); MONOCYTES # (AUTO) 0.9 10^3/uL (0.0-1.0); NEUTROPHILS # (AUTO) 4.7 10^3/uL (1.5-6.6); NEUTROPHILS % (AUTO) 61.8 %; PLT - PLATELET COUNT 196 10^3/uL (130-450); RED BLOOD COUNT 4.98 10^6/uL (4.20-5.40); WHITE BLOOD COUNT 7.6 x10^3/uL (4.8-10.8)
[2022-05-10 08:09] LABS: ALBUMIN 3.7 g/dL (3.2-5.5); ALBUMIN/GLOBULIN RATIO 1.1 (1.0-2.2); ALKALINE PHOSPHATASE 41 IU/L (42-121); ALT ALANINE AMINOTRANSFERASE 22 IU/L (10-60); AST ASPARTATE AMINOTRANSFERASE 21 IU/L (10-42); BILIRUBIN,TOTAL 0.8 mg/dL (0.2-1.0); BUN - BLOOD UREA NITROGEN 17 mg/dL (6-20); CALCIUM 9.5 mg/dL (8.5-10.3); CARBON DIOXIDE - CO2 23 mmol/L (21-32); CHLORIDE 107 mmol/L (101-111); CHOL/HDL RATIO 3.8 (<4.4); CHOLESTEROL 167 mg/dL; GFR - MDRD 54 (>89); GLUCOSE 139 mg/dL (70-100); HDL CHOLESTEROL 44 mg/dL; LDL CHOLESTEROL,CALCULATED 105 mg/dL; LDL/HDL RATIO 2.4 (<4.4); SODIUM 140 mmol/L (135-145); TOTAL PROTEIN 7.1 g/dL (6.7-8.2); TRIGLYCERIDES 90 mg/dL; VLDL CHOLESTEROL 18 mg/dL
[2022-05-10 08:22] LABS: THYROID STIMULATING HORMONE 3.49 uIU/mL (0.34-5.60)
== END 2022-05-10 06:45 | disposition home or self-care (01) ==
LOC: LAB 06:44
PROVIDERS: ATTEND Nurse Practitioner
DX: I10 Essential (primary) hypertension (principal); E03.9 Hypothyroidism, unspecified
CPT/HCPCS: 36415; 80053; 80061; 83721; 84443; 85025

== ENCOUNTER 2022-08-22 20:52 | Outpatient (CLI) | payer MEDICARE, OTHER | END 2022-08-22 20:53 | disposition critical access hospital (66) | LOC: EMS 20:52 | DX: R55 Syncope and collapse (principal) | CPT/HCPCS: A0425; A0429 ==

== ENCOUNTER 2022-08-22 21:10 | Emergency (ER) | payer MEDICARE, OTHER ==
[2022-08-22] MEDS ORDERED: SODIUM CHLORIDE 0.9% 1,000 ML IV STA (21:43)
[2022-08-22 21:57] LABS: BASOPHILS # (AUTO) 0.1 10^3/uL (0.0-0.1); BASOPHILS % (AUTO) 0.6 %; EOSINOPHILS # (AUTO) 0.4 10^3/uL (0.0-0.7); EOSINOPHILS % (AUTO) 3.9 %; HCT - HEMATOCRIT 46.2 % (37.0-47.0); HGB - HEMOGLOBIN 14.7 g/dL (12.0-16.0); LYMPHOCYTES # (AUTO) 2.1 10^3/uL (1.5-3.5); LYMPHOCYTES % (AUTO) 19.5 %; MEAN CORPUSCULAR HEMOGLOBIN 29.6 pg (27.0-31.0); MEAN CORPUSCULAR HGB CONC 31.8 g/dL (32.0-36.0); MEAN CORPUSCULAR VOLUME 93.1 fL (81.0-99.0); MONOCYTES # (AUTO) 1.1 10^3/uL (0.0-1.0); MONOCYTES % (AUTO) 10.6 %; NEUTROPHILS # (AUTO) 6.9 10^3/uL (1.5-6.6); NEUTROPHILS % (AUTO) 65.2 %; PLT - PLATELET COUNT 190 10^3/uL (130-450); RED BLOOD COUNT 4.96 10^6/uL (4.20-5.40); RED CELL DISTRIBUTION WIDTH 12.9 % (12.0-15.0); WHITE BLOOD COUNT 10.5 x10^3/uL (4.8-10.8)
[2022-08-22 22:11] LABS: ALBUMIN 3.7 g/dL (3.2-5.5); ALBUMIN/GLOBULIN RATIO 1.2 (1.0-2.2); BILIRUBIN,TOTAL 0.6 mg/dL (0.2-1.0); CALCIUM 9.1 mg/dL (8.5-10.3); POTASSIUM 3.7 mmol/L (3.5-5.0); TOTAL PROTEIN 6.7 g/dL (6.7-8.2)
--- NOTE | 2022-08-22 23:30 | ED Physician Documentation ---
PD HPI SYNCOPE - Stated complaint Stated Complaint: SYNCOPE - Chief complaint Chief Complaint: Neuro - History obtained from History obtained from: Patient, Family - Additional information Additional information: The patient is brought to the emergency department by EMS for chief complaint of syncopal episode. She was at dinner with friends and had eaten a fairly rich meal when she began to feel very hot. That is the last thing the patient remembers. According to her who is with her, she began to stare and then seemed like she was going to fall over. One of patient's friends was able to assist her to the floor where she fairly soon thereafter came to. The patient denies any chest pain or shortness of breath either before or after the event. She states feels little tired but other than that, denies any specific symptoms. She has had a rare episode of near fainting previously but thinks she went out fully this time. She does note that this food was out of the ordinary for which she has been eating lately and wonders had something to do with it. The patient is on metoprolol and has been for a while. No known heart issues. No other complaints at this time. 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, Other HEENT: Cataracts, Tonsil/Adenoidectomy - Present Medications Home Medications: Ambulatory Orders Medication Instructions Recorded Confirmed Levothyroxine Sodium 50 mcg PO DAILY 12/25/19 07/21/20 Metoprolol Succinate [Toprol Xl] 50 mg PO DAILY 12/25/19 07/21/20 Venlafaxine HCl [Venlafaxine HCl 75 mg PO DAILY PM 12/25/19 07/21/20 ER] Tolterodine Tartrate [Detrol LA] 4 mg PO DAILY PM 04/18/20 07/21/20 Ergocalciferol (Vitamin D2) 50 mcg PO DAILY 07/21/20 07/21/20 [Vitamin D2] predniSONE [Deltasone] 20 mg PO [id number] #21 tab 09/11/20 - Allergies Allergies/Adverse Reactions: Allergies Allergy/AdvReac Type Severity Reaction Status Date / Time Sulfa (Sulfonamide Allergy Rash Verified 08/22/22 21:22 Antibiotics) - Social History Does the pt smoke?: No Smoking Status: Never smoker Does the pt drink ETOH?: No Does the pt have substance abuse?: No - Immunizations Immunizations are current?: Yes PD ED PE NORMAL - Vitals Vital signs reviewed: Yes - General General: Alert and oriented X 3, No acute distress, Well developed/nourished - HEENT HEENT: Atraumatic, PERRL, EOMI, Moist mucous membranes - Neck Neck: Supple, no meningeal sign - Cardiac Cardiac: RRR, No murmur, Strong equal pulses - Respiratory Respiratory: No respiratory distress, Clear bilaterally - Abdomen Abdomen: Soft, Non tender, Non distended - Derm Derm: Normal color, Warm and dry, No rash - Extremities Extremities: No deformity - Neuro Neuro: Alert and oriented X 3 - Psych Psych: Normal mood, Normal affect Results - Vitals Vitals: Oxygen O2 Source Room air - EKG (time done) 2113 EKG releavant findings:: EKG personally interpreted by author of this note. Relevant findings are: Rate: Rate (enter#) (63) Rhythm: NSR Nathalie: Normal Intervals: Normal W[place] QRS: LVH (By voltage) Ischemia: Normal ST segments Compare to prior EKG: Old EKG unavailable Computer interpretation: Agree with computer - Labs Labs: Laboratory Tests 08/22/22 08/22/22 08/22/22 21:52 21:52 21:52 WBC 10.5 RBC 4.96 Hgb 14.7 Hct 46.2 MCV 93.1 MCH 29.6 MCHC 31.8 L RDW 12.9 Plt Count 190 MPV 9.0 Neut # (Auto) 6.9 H Lymph # (Auto) 2.1 Crook # (Auto) 1.1 H Eos # (Auto) 0.4 Baso # (Auto) 0.1 Absolute Nucleated RBC 0.00 Nucleated RBC % 0.0 Sodium 139 Potassium 3.7 Chloride 105 Carbon Dioxide 27 Anion Gap 7.0 BUN 15 Creatinine 1.0 Estimated GFR (MDRD) 54 L Glucose 153 H Calcium 9.1 Total Bilirubin 0.6 AST 20 ALT 19 Alkaline Phosphatase 42 Troponin I High Sens 3.9 Total Protein 6.7 Albumin 3.7 Globulin 3.0 Albumin/Globulin Ratio 1.2 Lipase 33 TSH 08/22/22 22:14 WBC RBC Hgb Hct MCV MCH MCHC RDW Plt Count MPV Neut # (Auto) Lymph # (Auto) Crook # (Auto) Eos # (Auto) Baso # (Auto) Absolute Nucleated RBC Nucleated RBC % Sodium Potassium Chloride Carbon Dioxide Anion Gap BUN Creatinine Estimated GFR (MDRD) Glucose Calcium Total Bilirubin AST ALT Alkaline Phosphatase Troponin I High Sens Total Protein Albumin Globulin Albumin/Globulin Ratio Lipase TSH 4.10 PD Medical Decision Making - ED course Complexity details: reviewed results, re-evaluated patient, considered differential, d/w patient ED course: The patient was worked up with laboratory studies, including CBC, ER abdominal panel, troponin, and TSH, all of which were reviewed by me and found to be unremarkable. She also had fairly unremarkable EKG as well. The patient was treated with a liter of IV fluids and was found to be feeling much better. I discussed with the patient and her significant other that I am not really sure why this happened today, and that it may be a one-time experience and never happens again. However, if she has repeated episodes of lightheadedness or fainting, she will need to talk to her doctor about having event monitoring done to further evaluate this. We have also discussed the usual indications for return. Departure - Departure Disposition: 01 Home, Self Care Clinical Impression: Syncope Qualifiers: Syncope type: unspecified Qualified Code(s): R55 - Syncope and collapse Condition: Stable Instructions: ED Fainting Unkn Cause Comments: Your labs, including your cardiac labs and your thyroid stimulating hormone, look good. Your EKG is normal and your rhythm is also been normal here. It is not clear exactly what caused your fainting episode tonight; however, at this point in time, no emergent cause has been identified. If you continue to have these episodes, especially with increasing frequency, then you will need to talk to your doctor about wearing an event monitor. Otherwise, please be sure you are getting 8 to 10 cups of water every day and plenty of rest to help avoid future events like this. If you develop severe chest pain, shortness of breath, or lightheadedness, please return to the emergency department immediately. Discharge Date/Time: 08/22/22 23:40
[2022-08-22 23:42] VITALS: BP 134/67
== END 2022-08-22 23:40 | disposition home or self-care (01) ==
LOC: EDUNIT# → ED 21:10
DX: R55 Syncope and collapse (principal); I10 Essential (primary) hypertension; E03.9 Hypothyroidism, unspecified; Z79.899 Other long term (current) drug therapy
CPT/HCPCS: 36415; 80053; 83690; 84443; 84484; 85025; 93005; 99283; 99284

== ENCOUNTER 2022-08-26 10:52 | Outpatient (CLI) | payer MEDICARE, OTHER ==
--- NOTE | 2022-08-26 20:44 | XRAY Report ---
PROCEDURE: Knee 3 View RT INDICATIONS: KNEE PX RT TECHNIQUE: 3 views of the right knee(s) were acquired. COMPARISON: None. FINDINGS: Bones: No fractures or dislocations. No suspicious bony lesions. Moderate medial femoral-tibial c ompartment osteoarthritis is seen with joint space narrowing, subchondral sclerosis and marginal oste ophyte formation. Mild patellofemoral compartment osteoarthritic changes also seen. No significant pa tellar subluxation. Soft tissues: Small knee joint effusion. No suspicious soft tissue calcifications or masses. IMPRESSION: No acute bony abnormality. Moderate medial femoral-tibial compartment osteoarthritis and mild patellofemoral compartment osteoph yte is. Small suprapatellar joint effusion. Reviewed by: Donis Irwin MD on 08/26/2022 8:43 PM PDT Approved by: Donis Irwin MD on 08/26/2022 8:43 PM PDT Station ID: [id number]
== END 2022-08-26 10:53 | disposition home or self-care (01) ==
LOC: DI 10:52
PROVIDERS: ATTEND Nurse Practitioner
DX: M17.11 Unilateral primary osteoarthritis, right knee (principal); M25.461 Effusion, right knee

== ENCOUNTER 2022-09-16 11:45 | Outpatient (CLI) | payer MEDICARE, OTHER ==
[2022-09-16 14:03] VITALS: BP 141/71
== END 2022-09-16 11:46 | disposition home or self-care (01) ==
LOC: MAC.MOP 11:45
PROVIDERS: ATTEND Nurse Practitioner
DX: R00.2 Palpitations (principal); R55 Syncope and collapse
CPT/HCPCS: 93246

== ENCOUNTER → 2022-10-08 | Outpatient (CLI) | payer MEDICARE, OTHER | LOC: MAC.INF 10:00 | PROVIDERS: ATTEND Nurse Practitioner | DX: I47.1 Supraventricular tachycardia (principal); I49.8 Other specified cardiac arrhythmias; I49.1 Atrial premature depolarization; I49.3 Ventricular premature depolarization | CPT/HCPCS: 93248 ==

== ENCOUNTER 2023-02-02 09:47 | Outpatient (CLI) | payer MEDICARE, OTHER | END 2023-02-02 09:48 | disposition home or self-care (01) | LOC: DI 09:47 | PROVIDERS: ATTEND Nurse Practitioner | DX: R55 Syncope and collapse (principal); R00.2 Palpitations; I51.7 Cardiomegaly | CPT/HCPCS: 93306 ==

== ENCOUNTER 2023-05-07 13:46 | Outpatient (CLI) | payer MEDICARE, OTHER | END 2023-05-07 13:47 | disposition critical access hospital (66) | LOC: EMS 13:46 | DX: M25.572 Pain in left ankle and joints of left foot (principal); M25.472 Effusion, left ankle; W01.0XXA Fall on same level from slipping, tripping and stumbling without subsequent striking against object, initial encounter; Y92.019 Unspecified place in single-family (private) house as the place of occurrence of the external cause | CPT/HCPCS: A0425; A0429 ==

== ENCOUNTER 2023-05-07 14:13 | Emergency (ER) | payer MEDICARE, OTHER ==
--- NOTE | 2023-05-07 14:22 | ED Physician Documentation ---
History of Present Illness - Stated complaint Stated Complaint: GLF - Chief complaint Chief Complaint: Trauma Ext - History obtained from History obtained from: Patient, EMS - History of Present Illness Timing: Last night Pain level max: 5 Pain level now: 3 - Additonal information Additional information: 78-year-old female states that she tripped and fell at home last night. She states she injured her left ankle and bilateral knees. She states that it hurt to try to get up and walk so she spent the night on the carpet with her dog. She states her slept in the bedroom with the other dogs. She took an Aleve last night. Called the ambulance today. No head, neck, back pain. Not on any anticoagulants. No hip pain. No shoulder pain. 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, Other HEENT: Cataracts, Tonsil/Adenoidectomy - Present Medications Home Medications: Ambulatory Orders Medication Instructions Recorded Confirmed Levothyroxine Sodium 50 mcg PO DAILY 12/25/19 05/07/23 Metoprolol Succinate [Toprol Xl] 50 mg PO DAILY 12/25/19 05/07/23 Omeprazole Magnesium 20 mg PO DAILY 05/07/23 05/07/23 Venlafaxine [Effexor] 37.5 mg ORAL HS 05/07/23 05/07/23 oxyCODONE [Roxicodone] 5 - 10 mg PO Q6H PRN #20 cap MDD 6 05/07/23 - Allergies Allergies/Adverse Reactions: Allergies Allergy/AdvReac Type Severity Reaction Status Date / Time Sulfa (Sulfonamide Allergy Rash Verified 05/07/23 14:17 Antibiotics) - Social History Does the pt smoke?: No Smoking Status: Never smoker Does the pt drink ETOH?: No Does the pt have substance abuse?: No - Immunizations Immunizations are current?: Yes PD ED PE NORMAL - Vitals Vital signs reviewed: Yes - General General: Alert and oriented X 3, No acute distress - HEENT HEENT: Atraumatic, PERRL, Ears normal, Moist mucous membranes - Neck Neck: Supple, no meningeal sign, No bony TTP, C-Spine cleared by NEXUS criteria - Cardiac Cardiac: RRR, Strong equal pulses - Respiratory Respiratory: No respiratory distress, Clear bilaterally - Abdomen Abdomen: Soft, Non tender, Non distended - Back Back: No spinal TTP (No step-off or deformity. No tenderness to palpation or percussion.) - Derm Derm: Warm and dry - Extremities Extremities: Other (Tender to palpation over the left ankle, distal tibia and fibula. No deformity. Neurovascular intact. No tenderness over the foot. Mild tenderness over the left and right tibial plateaus. No swelling. No bruising. Otherwise normal examination of all 4 extremities and all major joints.) - Neuro Neuro: Alert and oriented X 3 - Psych Psych: Normal mood, Normal affect Results - Vitals Vitals: Vital Signs - 24 hr 05/07/23 05/07/23 05/07/23 14:17 16:22 17:05 Temperature 36.6 C Heart Rate 73 69 78 Respiratory 18 18 17 Rate Blood Pressure 175/70 H 138/68 H 144/112 H O2 Saturation 98 99 98 Oxygen O2 Source Room air - Rads (name of study) Left ankle x-ray Relevant Findings:: Final report received, See rad report Bilateral ankle x-rays Relevant Findings:: Final report received, See rad report Procedures - Splint (location) - Minor LLE Splint applied by: Physician, Tech Type of splint: Short leg, Posterior Other: Patient tolerated well, No complications, Neurovascular intact, Other (has a walker) PD Medical Decision Making - ED course Complexity details: reviewed results, re-evaluated patient, considered differential, d/w patient, d/w family ED course: 78-year-old female with a distal tibia fracture. Placed in a posterior splint. Pain well-controlled. Has a walker at home, can utilize a wheelchair at home as well. Patient will follow-up with orthopedics for further care. No other acute injuries. Pain well-controlled in the emergency department. No head injury. No headache. No nausea or vomiting. Not on blood thinners. No indication for head CT. No neck pain, back pain. No focal neurological deficits. Patient and family counseled regarding signs and symptoms for which I believe and urgent re-evaluation would be necessary. Patient with good understanding of and agreement to plan and is comfortable going home at this time This document was made in part using voice recognition software. While efforts are made to proofread this document, sound alike and grammatical errors may occur. Departure - Departure Disposition: 01 Home, Self Care Clinical Impression: Fracture of distal end of tibia Qualifiers: Encounter type: initial encounter Fracture type: closed Fracture morphology: torus Laterality: left Qualified Code(s): S82.312A - Torus fracture of lower end of left tibia, initial encounter for closed fracture Condition: Good Instructions: ED Fx Lower Ext Follow-Up: Shaina Parker ARNP [Primary Care Provider] - [facility] [Provider Group] - Within 1 week Prescriptions: oxyCODONE [Roxicodone] 5 - 10 mg PO Q6H PRN #20 cap MDD 6 PRN Reason: pain Comments: Your prescriptions were sent to [email or web address] in [place]. It is important that you do not bear weight on your left leg. Please follow-up with orthopedics for further care. Please call tomorrow for a follow-up appointment. Please return if you worsen. You have an oblique, nondisplaced distal tibia fracture I am prescribing a short course of narcotic pain medication for you. These are potentially dangerous and addictive medications that should be used carefully. These medications may constipate you. Take an kiev-uez-zphyjaf stool softener (docusate) twice daily with plenty of water while taking these medications. If you go 24 hours without a bowel movement, take [id number] miralax, per package instructions. Do not drink or drive while taking these medications. If you received narcotic or sedating medications while in the emergency department, do not drive for 24 hours. Store this medication in a safe, secure place and out of reach of children. It is a violation of federal law to give or sell this medication to another person or to use in a manner other than prescribed. The ED will not refill narcotic prescriptions, including prescriptions lost or stolen. To dispose of unwanted medications: 1. [facility] [address] in [place] has a medication drop box. They accept prescription medications (in pill form) Tuesday through Tuesday 9:00 a.m. to 5:00 p.m. 2. The [facility] [employer] accepts prescription medications (in pill form only) for disposal year round. Call for more information. 3. Contact the [facility] for the next [facility] sponsored prescription drug collection event. , [phone], or [phone]; PROCEDURE: Ankle 3+V LT INDICATIONS: fall, L ankle pain TECHNIQUE: 3 views of the ankle were acquired. COMPARISON: None FINDINGS: Bones: Oblique distal tibial fracture noted . No displacement. Ankle mortise is maintained. Associated soft tissue swelling Soft tissues: Unremarkable without significant soft tissue swelling. No radiopaque foreign body. IMPRESSION: Oblique nondisplaced distal tibial fracture without articular involvement Forms: PCP List Discharge Date/Time: 05/07/23 17:10
[2023-05-07 14:23] VITALS: O2SAT 98
[2023-05-07] MEDS: oxyCODONE 5 MG TABLET PO STA (14:25)
--- NOTE | 2023-05-07 16:02 | XRAY Report ---
PROCEDURE: Ankle 3+V LT INDICATIONS: fall, L ankle pain TECHNIQUE: 3 views of the ankle were acquired. COMPARISON: None FINDINGS: Bones: Oblique distal tibial fracture noted . No displacement. Ankle mortise is maintained. Associat ed soft tissue swelling Soft tissues: Unremarkable without significant soft tissue swelling. No radiopaque foreign body. IMPRESSION: Oblique nondisplaced distal tibial fracture without articular involvement Reviewed by: Jason Catalan MD on 05/07/2023 3:01 PM AKST Approved by: Jason Catalan MD on 05/07/2023 3:01 PM AKST Station ID: [id number]
--- NOTE | 2023-05-07 16:12 | XRAY Report ---
PROCEDURE: Knee 4+V BL INDICATIONS: fall, B knee pain TECHNIQUE: 3 views of the knee was obtained. COMPARISON: None FINDINGS: Bones: No fractures or dislocations. No suspicious bony lesions. Medial compartment joint space melissa rowing with small marginal osteophyte Soft tissues: No knee joint effusion. No suspicious soft tissue calcifications or masses. IMPRESSION: Medial osteoarthritis without fracture or joint effusion Reviewed by: Jason Catalan MD on 05/07/2023 3:11 PM AKST Approved by: Jason Catalan MD on 05/07/2023 3:11 PM AKST Station ID: [id number]
[2023-05-07 17:06] VITALS: BP 144/112
== END 2023-05-07 17:10 | disposition home or self-care (01) ==
LOC: ED 14:13
DX: S82.232A Displaced oblique fracture of shaft of left tibia, initial encounter for closed fracture (principal); W01.0XXA Fall on same level from slipping, tripping and stumbling without subsequent striking against object, initial encounter; Y92.003 Bedroom of unspecified non-institutional (private) residence as the place of occurrence of the external cause; M17.0 Bilateral primary osteoarthritis of knee
CPT/HCPCS: 29515; 73564; 73610; 99283; A9270

== ENCOUNTER 2023-05-11 13:27 | Outpatient (CLI) | payer MEDICARE, OTHER | END 2023-05-11 13:28 | disposition EMS.NT | LOC: EMS 13:27 | DX: R53.1 Weakness (principal); M79.662 Pain in left lower leg ==

== ENCOUNTER 2023-05-11 19:55 | Outpatient (CLI) | payer MEDICARE, OTHER | END 2023-05-11 19:56 | disposition critical access hospital (66) | LOC: EMS 19:55 | DX: S82.92XD Unspecified fracture of left lower leg, subsequent encounter for closed fracture with routine healing (principal); W19.XXXD Unspecified fall, subsequent encounter | CPT/HCPCS: A0425; A0427 ==

== ENCOUNTER 2023-05-11 20:18 | Emergency (ER) | payer MEDICARE, OTHER ==
--- NOTE | 2023-05-11 20:45 | ED Physician Documentation ---
History of Present Illness - Stated complaint Stated Complaint: LEG INJ PX WORSENING - Chief complaint Chief Complaint: Ext Problem - History obtained from History obtained from: Patient - Additonal information Additional information: The patient comes to the emergency department chief complaint of ongoing left lower leg pain and "I cannot function at home". She was seen here on May 07 for what turned out to be a distal tibial fracture, and was splinted. She followed up with Dr. Corbett who placed her in a walking boot but according to the patient, she is not yet cleared to walk. However, the states that Dr. Corbett told him that he thought the patient would be getting up and around "by Tuesday" which is 2 days from now. The patient states that she has crutches but cannot use them because her arms are too weak and she is too overweight. She states that Dr. Corbett told her that he did not think a knee scooter would be a good idea because her weight, as well. The patient has 2 front walkers but has not used them because to her understanding, she is not allowed to walk on her leg and anyway, her arms are too weak, she thinks. They have a wheelchair at home which they have used but the patient states that she has interstitial cystitis and has to urinate frequently and that she cannot get diapers or pad underneath herself. She states that she has a prescription for oxycodone, which according to the bottle, says she may take 1 to 2 tablets every 6 hours as needed for pain; however, she has not been taking this much because "she does not like to take medicine". Her main complaint tonight other than concerns about functioning at home, is that her leg is hurting. This has not prompted her to take further medication, however. She has been mildly constipated and has had 1 bowel movement since starting oxycodone. No new injuries to her leg. No other acute issues or complaints. PD PAST MEDICAL HISTORY - Past Medical History Past Medical History: Yes Cardiovascular: Hypertension Respiratory: None Endocrine/Autoimmune: HyPOthyroidism GI: GERD, Colon polyps : Incontinence, Nocturia, Frequency, Other HEENT: Chronic vision loss, Chronic hearing loss Psych: Anxiety Musculoskeletal: None Derm: None - Past Surgical History Past Surgical History: Yes General: Appendectomy, Colonoscopy Ortho: Other /HAND TUBE BENDER: Breast reduction, Other HEENT: Cataracts, Tonsil/Adenoidectomy - Present Medications Home Medications: Ambulatory Orders Medication Instructions Recorded Confirmed Levothyroxine Sodium 50 mcg PO DAILY 12/25/19 05/11/23 Metoprolol Succinate [Toprol Xl] 50 mg PO DAILY 12/25/19 05/11/23 Omeprazole Magnesium 20 mg PO DAILY 05/07/23 05/11/23 oxyCODONE [Roxicodone] 5 - 10 mg PO Q6H PRN #20 cap MDD 6 05/07/23 05/11/23 Venlafaxine HCl 75 mg PO DAILY 05/11/23 05/11/23 - Allergies Allergies/Adverse Reactions: Allergies Allergy/AdvReac Type Severity Reaction Status Date / Time Sulfa (Sulfonamide Allergy Rash Verified 05/11/23 20:29 Antibiotics) - Social History Does the pt smoke?: No Smoking Status: Never smoker Does the pt drink ETOH?: No Does the pt have substance abuse?: No - Immunizations Immunizations are current?: Yes - POLST Patient has POLST: No PD ED PE NORMAL - Vitals Vital signs reviewed: Yes - General General: Alert and oriented X 3, No acute distress, Well developed/nourished - HEENT HEENT: Atraumatic, PERRL, EOMI, Moist mucous membranes - Neck Neck: Supple, no meningeal sign - Cardiac Cardiac: RRR, No murmur - Respiratory Respiratory: No respiratory distress, Clear bilaterally - Abdomen Abdomen: Soft, Non tender, Non distended - Derm Derm: Normal color, Warm and dry, No rash - Extremities Extremities: No deformity, Other (Tenderness palpation of her L anterior tibia distally. No edema.) - Neuro Neuro: Alert and oriented X 3, No motor deficit, No sensory deficit (Intact sensation left distal lower extremity.), Other (Grossly intact.) - Psych Psych: Normal mood, Normal affect Results - Vitals Vitals: Vital Signs - 24 hr 05/11/23 05/11/23 05/12/23 20:15 23:00 00:00 Temperature 37.1 C Heart Rate 111 H 108 H Respiratory 18 19 Rate Blood Pressure 159/58 H 140/69 H 160/74 H O2 Saturation 97 94 05/12/23 05/12/23 05/12/23 02:00 03:09 03:11 Temperature 36.2 C L 36.2 C L Heart Rate 92 102 H 110 H Respiratory 20 16 22 Rate Blood Pressure 142/59 H 142/59 H 142/59 H O2 Saturation 94 100 95 05/12/23 05/12/23 04:21 06:10 Temperature 36.8 C Heart Rate 98 95 Respiratory 18 20 Rate Blood Pressure 97/38 L 134/67 H O2 Saturation 95 100 Oxygen O2 Source Room air - Labs Labs: Laboratory Tests 05/11/23 05/11/23 20:52 20:52 WBC 8.5 RBC 4.60 Hgb 14.0 Hct 43.3 MCV 94.1 MCH 30.4 MCHC 32.3 RDW 13.2 Plt Count 171 MPV 9.0 Neut # (Auto) 5.6 Lymph # (Auto) 1.2 L Pine # (Auto) 1.5 H Eos # (Auto) 0.1 Baso # (Auto) 0.1 Absolute Nucleated RBC 0.00 Nucleated RBC % 0.0 Sodium 136 Potassium 3.5 Chloride 101 Carbon Dioxide 28 Anion Gap 7.0 BUN 15 Creatinine 1.0 Estimated GFR (MDRD) 53 L Glucose 126 H Calcium 9.2 Total Bilirubin 0.9 AST 31 ALT 35 Alkaline Phosphatase 42 Total Protein 6.2 L Albumin 3.8 Globulin 2.4 Albumin/Globulin Ratio 1.6 Lipase < 10 L PD Medical Decision Making - ED course Complexity details: reviewed old records, reviewed results, re-evaluated patient, considered differential, d/w patient, d/w family ED course: I had a very long discussion with the patient and her and a friend who had to Accompanied her. The patient had many excuses as to why she could not even try to use any of the assistive device that she had at home and it sounded like Dr. Corbett's plan was for her to actually start bearing weight very quickly. Additionally, the patient had been taken out of the fiberglass splint that had been placed here in the ED and had been placed in a walking boot. Furthermore, the patient was not taking anywhere near the amount of oxycodone that she could be taking, yet was complaining that her pain was poorly controlled at home. I had a very angel discussion with her as well as her and friend, that she is going to have to have a more positive and can do mindset, otherwise she is going to become very deconditioned and end up in a prison. I discussed with the patient that even if we keep her here to talk to social work about rehab, part of her evaluation is going to be getting up with physical therapy and a walker if cleared by Dr. Corbett to do so. The patient is convinced she cannot go home tonight and so she will stay and wait for social work to evaluate her and determine her mobility and the best way to get around. The patient has remained stable throughout the night. I did not repeat imaging, as the patient steadfastly denied any new trauma, and there is no evidence of angulation or displacement of the anterior tibia. At this point in time, the patient is signed out to Dr. Ring at change of shift, pending social work evaluation and final disposition. Departure - Departure Forms: PCP List
[2023-05-11 20:57] LABS: BASOPHILS # (AUTO) 0.1 10^3/uL (0.0-0.1); BASOPHILS % (AUTO) 0.6 %; EOSINOPHILS # (AUTO) 0.1 10^3/uL (0.0-0.7); EOSINOPHILS % (AUTO) 1.5 %; HCT - HEMATOCRIT 43.3 % (37.0-47.0); LYMPHOCYTES # (AUTO) 1.2 10^3/uL (1.5-3.5); LYMPHOCYTES % (AUTO) 14.1 %; MEAN CORPUSCULAR HEMOGLOBIN 30.4 pg (27.0-31.0); MEAN CORPUSCULAR HGB CONC 32.3 g/dL (32.0-36.0); MEAN CORPUSCULAR VOLUME 94.1 fL (81.0-99.0); MONOCYTES # (AUTO) 1.5 10^3/uL (0.0-1.0); MONOCYTES % (AUTO) 17.3 %; NEUTROPHILS # (AUTO) 5.6 10^3/uL (1.5-6.6); NEUTROPHILS % (AUTO) 66.4 %; PLT - PLATELET COUNT 171 10^3/uL (130-450); RED CELL DISTRIBUTION WIDTH 13.2 % (12.0-15.0); WHITE BLOOD COUNT 8.5 x10^3/uL (4.8-10.8)
[2023-05-11 21:14] LABS: ALBUMIN 3.8 g/dL (3.2-5.5); ALBUMIN/GLOBULIN RATIO 1.6 (1.0-2.2); ALKALINE PHOSPHATASE 42 IU/L (42-121); ALT ALANINE AMINOTRANSFERASE 35 IU/L (10-60); AST ASPARTATE AMINOTRANSFERASE 31 IU/L (10-42); BILIRUBIN,TOTAL 0.9 mg/dL (0.2-1.0); BUN - BLOOD UREA NITROGEN 15 mg/dL (6-20); CALCIUM 9.2 mg/dL (8.5-10.3); CARBON DIOXIDE - CO2 28 mmol/L (21-32); CHLORIDE 101 mmol/L (101-111); GFR - MDRD 53 (>89); GLUCOSE 126 mg/dL (74-104); POTASSIUM 3.5 mmol/L (3.5-4.5); SODIUM 136 mmol/L (135-145); TOTAL PROTEIN 6.2 g/dL (6.4-8.9)
[2023-05-11] MEDS: SODIUM CHLORIDE 0.9% 1,000 ML IV STA (21:14)
[2023-05-11 21:26] LABS: LIPASE < 10 U/L (11-82)
[2023-05-12] MEDS: oxyCODONE 5 MG TABLET PO PRN (00:09)
[2023-05-12] MEDS: MELOXICAM 7.5 MG TABLET PO SCH (11:26)
[2023-05-12] MEDS: ACETAMINOPHEN 325 MG TABLET PO SCH (11:26)
--- NOTE | 2023-05-12 15:39 | ED Physician Documentation ---
ED Addendum - Addendum Addendum: 05/12/23 15:37 Pt stable in ED pending dispo d/t tibial fracture. SW notified me now that poss assisted living tomorrow.
[2023-05-12] MEDS: METOPROLOL SUCCINATE 50 MG TABLET PO STA (19:38)
[2023-05-12] MEDS: PANTOPRAZOLE 40 MG TABLET PO STA (19:38)
[2023-05-12] MEDS: VENLAFAXINE ER 75 MG CAPSULE PO STA (19:38)
[2023-05-12] MEDS: LEVOTHYROXINE 25 MCG TABLET PO SCH (19:39)
--- NOTE | 2023-05-13 06:57 | ED Physician Documentation ---
ED Addendum - Addendum Addendum: 05/13/23 06:56 [place]. plan for [facility]. care over to incoming daytime ED MD at 7am shift change.
[2023-05-13] MEDS: VENLAFAXINE ER 75 MG CAPSULE PO SCH (08:40)
[2023-05-13] MEDS: METOPROLOL SUCCINATE 50 MG TABLET PO SCH (08:40)
[2023-05-13] MEDS ORDERED: VENLAFAXINE 37.5 MG TABLET PO SCH (09:00)
--- NOTE | 2023-05-13 10:28 | ED Physician Documentation ---
ED Addendum - Addendum Addendum: 05/13/23 10:25 The patient was conversant and doing well in bed this morning. She is going to go to assisted living today where she will be able to get assistance with ADLs as well as physical therapy etc. We had put in for a PT consult yesterday. The specialist was unable to fit in an assessment yesterday. Will see if they can this morning before she is due to leave the ER. Otherwise I can get a PT assessment at [facility]. I will write for some anti-inflammatories. The patient did have some labs done during this visit in the ER and her renal function is somewhat impaired but not too badly so a short course of NSAIDs I feel is reasonable. To that add Tylenol regularly and in addition oxycodone if needed for pain. Will also add a stool softener. She is to continue her other usual medications and diet. Disposition: The patient discharged home in stable condition to assisted living Diagnoses: 1. Distal fibular fracture 2. Ankle pain 3. elevated BMI 4. Generalized weakness
[2023-05-13 12:33] VITALS: BP 125/80; O2SAT 99
== END 2023-05-13 12:29 | disposition home or self-care (01) ==
LOC: EDUNIT# → ED 20:18
DX: S82.832A Other fracture of upper and lower end of left fibula, initial encounter for closed fracture (principal); X58.XXXA Exposure to other specified factors, initial encounter; I10 Essential (primary) hypertension
CPT/HCPCS: 36415; 80053; 83690; 85025; 93005; 99283; 99284; A9270

== ENCOUNTER 2023-05-24 15:15 | Outpatient (CLI) | payer MEDICARE, OTHER ==
--- NOTE | 2023-05-24 17:53 | XRAY Report ---
PROCEDURE: Ankle 3 View LT INDICATIONS: LEFT ANKLE FRACTURE TECHNIQUE: 3 views of the ankle were acquired. COMPARISON: 3 views of the ankle dated 05/07/2023. FINDINGS: Bones: Comminuted distal tibial fracture is redemonstrated. Fracture fragments are in unchanged dorothea omic alignment. No callus is yet visualized. Soft tissues: No tibiotalar joint effusion. Achilles tendon appears normal. IMPRESSION: Stable distal tibial fracture. Reviewed by: Kavitha Krause MD on 05/24/2023 5:52 PM PST Approved by: Kavitha Krause MD on 05/24/2023 5:52 PM [facility] Station ID: [id number]
== END 2023-05-24 23:59 | disposition home or self-care (01) ==
LOC: DI.WOS 15:15
PROVIDERS: ATTEND Orthopaedic Surgery
DX: S82.235D Nondisplaced oblique fracture of shaft of left tibia, subsequent encounter for closed fracture with routine healing (principal)

== ENCOUNTER 2023-06-23 09:46 | Outpatient (CLI) | payer MEDICARE, OTHER ==
--- NOTE | 2023-06-23 13:49 | XRAY Report ---
PROCEDURE: Ankle 3 View LT INDICATIONS: LEFT ANKLE FRACTURE TECHNIQUE: 3 views of the ankle were acquired. COMPARISON: Ankle radiographs 05/24/2023. FINDINGS: Bones: Overlying cast obscures the fine osseous and soft tissue detail. Ongoing healing of comminute d distal tibia fracture. Alignment is unchanged compared to prior. No new fracture identified. Ankle mortise is intact. Plantar calcaneal enthesophyte. Soft tissues: No tibiotalar joint effusion. Achilles tendon appears normal. IMPRESSION: Ongoing healing of distal tibia fracture in unchanged alignment. Reviewed by: Umu Davis MD, PhD on 06/23/2023 1:47 PM PDT Approved by: Umu Davis MD, PhD on 06/23/2023 1:47 PM PDT Station ID: [id number]
== END 2023-06-23 23:59 | disposition home or self-care (01) ==
LOC: DI.WOS 09:46
PROVIDERS: ATTEND Orthopaedic Surgery
DX: S82.252D Displaced comminuted fracture of shaft of left tibia, subsequent encounter for closed fracture with routine healing (principal)

== ENCOUNTER 2023-07-11 08:36 | Outpatient (CLI) | payer MEDICARE, OTHER ==
--- NOTE | 2023-07-11 16:22 | XRAY Report ---
PROCEDURE: Ankle 3 View LT INDICATIONS: LEFT ANKLE PAIN TECHNIQUE: 3 views of the ankle were acquired. COMPARISON: X-ray ankle 06/23/2023 FINDINGS: Bones: Overlying cast material has been removed. Fracture lucencies within the distal tibia is again identified. Fracture lucencies are slightly less visible. Periosteal reaction is present. Soft tissues: No tibiotalar joint effusion. Achilles tendon appears normal. IMPRESSION: Mild interval healing of distal tibial fracture. Reviewed by: Tsering Forte MD on 07/11/2023 4:20 PM PDT Approved by: Tsering Forte MD on 07/11/2023 4:20 PM PDT Station ID: [id number]
== END 2023-07-11 23:59 | disposition home or self-care (01) ==
LOC: DI.WOS 08:36
PROVIDERS: ATTEND Orthopaedic Surgery
DX: S82.302D Unspecified fracture of lower end of left tibia, subsequent encounter for closed fracture with routine healing (principal)

== ENCOUNTER 2023-08-26 16:53 | Outpatient (CLI) | payer MEDICARE, OTHER ==
--- NOTE | 2023-08-29 08:42 | MRI Report ---
PROCEDURE: Knee RT WO INDICATIONS: R KNEE PAIN TECHNIQUE: Noncontrast sagittal PD fast spin echo and T2 fast spin echo with fat saturation, sagittal 3-D gradie nt sequence with fat saturation; coronal T1 spin echo and PD fast spin echo with fat saturation, and axial PD fast spin echo with fat saturation through the knee. COMPARISON: Right knee radiograph dated 08/26/2022 and 05/07/2023. FINDINGS: Image quality: Excellent. Menisci: Complex tear involving body and posterior horn of medial meniscus extending to both superior and inferior articulating surfaces. Peripheral displacement of medial meniscus bowing medial collate ral ligament is also seen. There is suggestion of moderate grade partial-thickness tear involving pos terior medial meniscal root ligament. The lateral meniscus is intact. Cruciate ligaments: The anterior cruciate ligament is thickened with intrasubstance T2 hyperintense signal near its proximal insertion. No ACL rupture. The PCL is intact. Medial structures: The medial collateral ligament appears thickened with intrasubstance T2 hyperinte nse signal near its femoral insertion. Visualized portions of the pes anserinus tendons appear normal . No abnormal bursal fluid. Lateral structures: The lateral collateral ligament is mildly thickened at its femoral insertion. Th e long and short heads of the biceps femoris tendon appear intact. The popliteus tendon appears inta ct. Iliotibial band appears normal. Anterior structures: The quadriceps and patellar tendons appear intact. Patellar alignment is devan l. No femoral trochlear dysplasia or ventral trochlear prominence. No edema in the infrapatellar fa t pad. Bones and cartilage: No bone marrow contusions or fractures. Mild to moderate tricompartmental osteo arthritis and chondromalacia is seen most notably in medial femoral tibial compartment. Joint space: There is small knee joint fluid. There is a popliteal cyst measures 3.8 x 2.3 x 7.1 cm in size. Normal appearing synovial plicae are incidentally noted. IMPRESSION: 1. Complex tear involving body and posterior horn of medial meniscus extending to both superior and i nferior articulating surfaces. Moderate grade partial-thickness involving posterior medial meniscal r oot ligament. The lateral meniscus is intact. 2. Degenerative changes and low-grade partial-thickness involving ACL near its proximal insertion. No ACL rupture. The PCL is intact. 3. Low to moderate grade MCL sprain/partial thickness tear. Low-grade LCL sprain. 4. Mild to moderate tricompartmental osteoarthritis and chondromalacia most notably in medial femoral tibial compartment. No fracture or dislocation. 5. Small joint effusion and a popliteal cyst as described above, no loose bodies. Reviewed by: Donis Fay MD on 08/29/2023 8:41 AM PDT Approved by: Donis Fay MD on 08/29/2023 8:41 AM PDT Station ID: [id number]
== END 2023-08-26 16:54 | disposition home or self-care (01) ==
LOC: DI 16:53
PROVIDERS: ATTEND Family Medicine
DX: S83.241A Other tear of medial meniscus, current injury, right knee, initial encounter (principal); S83.411A Sprain of medial collateral ligament of right knee, initial encounter; S83.421A Sprain of lateral collateral ligament of right knee, initial encounter; M17.11 Unilateral primary osteoarthritis, right knee; M94.261 Chondromalacia, right knee; M25.461 Effusion, right knee; M71.21 Synovial cyst of popliteal space [Baker], right knee

== ENCOUNTER 2023-10-12 13:26 | Outpatient (CLI) | payer MEDICARE, OTHER ==
--- NOTE | 2023-10-12 16:13 | XRAY Report ---
PROCEDURE: Knee 4+V RT INDICATIONS: RIGHT KNEE PAIN TECHNIQUE: 4 views of the knee(s) were acquired. COMPARISON: Bilateral knee radiograph on May 07, 2023. FINDINGS: Bones: No fractures or dislocations. Moderate bilateral medial compartment joint space narrowing and juxta-articular osteophytosis, left greater than right. Mild lateral and patellofemoral compartment joint space narrowing and juxta-articular osteophytosis in the right knee. No suspicious bony lesions . Soft tissues: Small knee joint effusion. No suspicious soft tissue calcifications or masses. IMPRESSION: 1.No acute bony abnormality. If there remains a high clinical concern for fracture, consider cross-se ctional imaging now. If pain persists, consider repeat x-ray in 10-14 days or cross-sectional imaging . 2.Bilateral tricompartmental osteoarthritis which is worse in the medial femorotibial compartments bi laterally, similar to prior dated May 07, 2023. Reviewed by: Crescencio Iyer MD on 10/12/2023 4:12 PM PDT Approved by: Crescencio Iyer MD on 10/12/2023 4:12 PM PDT Station ID: [id number]
== END 2023-10-12 13:27 | disposition home or self-care (01) ==
LOC: DI 13:26
PROVIDERS: ATTEND Physician Assistant Surgical
DX: M17.11 Unilateral primary osteoarthritis, right knee (principal)